=== PATIENT | female | born 1985 | race Caucasian/White ===

== ENCOUNTER → 2022-03-29 | Outpatient (CLI) | payer BC, OTHER ==
--- NOTE | 2022-03-29 14:39 | Diagnostic Imaging Report ---
INDICATION: Right breast lump. Correlation is made with diagnostic mammogram earlier same day. Sonographic interrogation of the area of palpable abnormality in the right axilla was performed. There is a normal-sized lymph node measuring 1.3 x 0.8 x 1.1 cm at the area of palpable abnormality. No suspicious mass is identified. IMPRESSION: BI-RADS Category 2 Normal-appearing right axillary lymph node appears to account for the palpable abnormality. No other abnormalities are seen. ACR BI-RADS Category 2: Benign findings. Dictated by: Dictated on workstation # [id number]
--- NOTE | 2022-03-29 17:36 | Diagnostic Imaging Report ---
INDICATION: Palpable lump right axilla. No prior studies are available for comparison. 2-D and 3-D bilateral diagnostic mammography was performed with CAD. BB marker was placed at the area of palpable abnormality in the right axilla. Both breasts are heterogeneously dense, limiting the sensitivity of mammography. No dominant mass or malignant-appearing microcalcifications are seen. Multiple normal-sized lymph nodes in the axillae are noted bilaterally. IMPRESSION: No mammographic features suspicious for malignancy are identified. Even so, sonographic interrogation of the area palpable abnormality in the right axilla is recommended and will be performed today. ACR BI-RADS Category 0: Incomplete. (Needs additional imaging evaluation). Result letter will be mailed to the patient. Note: At least 10% of breast cancer is not imaged by mammography. BI-RADS 0 Dictated by: Dictated on workstation # [id number]
== END ==
LOC: RAD 12:45
PROVIDERS: ATTEND Nurse Practitioner Family
DX: N63.20 Unspecified lump in the left breast, unspecified quadrant (principal)
CPT/HCPCS: 76642; 77066; G0279; 77062